=== PATIENT | male | born 1970 | race Caucasian/White ===

== ENCOUNTER 2017-10-03 18:52 | Emergency (ER) | payer BC ==
[2017-10-03] MEDS ORDERED: Adacel (T-DAP) 0.5 ML VIAL ONE (20:00)
[2017-10-03] MEDS ORDERED: Lidocaine 1% (PF) 30 ML VIAL ONE (20:21)
[2017-10-03] MEDS ORDERED: HYDROcodone/Acetaminophen 10/325 mg Tablet ONE (20:49)
--- NOTE | 2017-10-03 21:33 | RAD ---
THREE VIEWS OF THE RIGHT HAND: INDICATIONS: Right hand injury. FINDINGS: There is a comminuted, obliquely oriented fracture involving the distal tuft of the right long finger . No definite additional acute osseous abnormality is evident. Sesamoids are seen adjacent to the M CP of the index and long fingers. IMPRESSION: Distal tuft fracture of the right long finger. POS: [facility]
== END 2017-10-03 22:32 | disposition home or self-care (01) ==
LOC: ERS 18:52
DX: S62.632B Displaced fracture of distal phalanx of right middle finger, initial encounter for open fracture (principal); S61.214A Laceration without foreign body of right ring finger without damage to nail, initial encounter; Z23 Encounter for immunization; W31.2XXA Contact with powered woodworking and forming machines, initial encounter
CPT/HCPCS: 90471; 90715; J2001

== ENCOUNTER 2017-10-05 09:18 | Observation (INO) | payer BC, SELFPAY ==
[2017-10-05 12:22] LABS: #Basophils 0.1 thou/uL (0.0-0.2); #Eosinphils 0.1 thou/uL (0.0-0.7); #Lymphocytes 1.3 thou/uL (1.20-3.40); #Monocytes 0.6 thou/uL (0.11-0.59); %Basophils 0.8 % (0.0-1.0); %Lymphocytes 12.5 % (21.0-51.0); %Monocytes 6.1 % (0.0-10.0); %Neutrophils 79.6 % (42.0-75.0); Hemoglobin 14.5 g/dL (14.0-18.0); Mean Corpuscular HGB CONC 33.5 g/dL (32.0-36.0); Mean Corpuscular Hemoglobin 28.7 pg (27.0-31.0); Mean Corpuscular Volume 85.8 fl (80.0-94.0); Platelet Count 238 thou/uL (130-400); RBC Distribution Width 14.7 % (11.5-14.5); Red Blood Cell (RBC) Count 5.06 mill/uL (4.70-6.10)
[2017-10-05] MEDS ORDERED: Morphine 4 MG/ML VIAL SLOW IVP PRN (12:43)
[2017-10-05] MEDS ORDERED: Ondansetron HCl/PF 4 MG/2 ML Vial IVP PRN ×2 (12:43→22:59)
[2017-10-05] MEDS ORDERED: Acetaminophen 325 MG TAB PO PRN (12:43)
[2017-10-05] MEDS ORDERED: Ondansetron ODT 4 MG TAB SL PRN (12:43)
[2017-10-05 12:48] LABS: ALT (SGPT) 22 U/L (8-55); AST (SGOT) 14 U/L (5-34); Alkaline Phosphatase 65 U/L (40-150); Anion Gap 11 mmol/L (10-20); BUN (Urea Nitrogen) 13 mg/dL (8.9-20.6); Bilirubin, Total 0.4 mg/dL (0.2-1.2); Calc. Creatinine Clearance 0 mL/min (70-130); Calcium 9.2 mg/dL (7.8-10.44); Carbon Dioxide 25 mmol/L (22-29); Chloride 106 mmol/L (98-107); Estimated GFR-MDRD Greater than 90; Globulin 2.9 g/dL (2.4-3.5); Glucose 102 mg/dL (70-105); Potassium 4.1 mmol/L (3.5-5.1); Protein, Total 6.9 g/dL (6.0-8.3); Sodium 138 mmol/L (136-145)
[2017-10-05 13:22] VITALS: BMI 46.0
--- NOTE | 2017-10-05 14:21 | HP ---
DATE OF ADMISSION: 10/05/2017 REQUESTING PHYSICIAN: Dr. Gacria. ATTENDING PHYSICIAN: Dr. King. CONSULTATION: Hand Surgery, Dr. Bardales. HISTORY OF PRESENT ILLNESS: The patient is a 46-year-old man who on Wednesday was working with a table saw when he brushed the dorsum of his right middle finger, ring finger and small finger against the b lade avulsing the nails off of his ring finger and middle finger and the soft tissue of the tip of hi s small finger. The patient was brought to the emergency room and was evaluated after orthopedic con sultation has recommended that he follow up with Dr. Bardales. The patient had an appointment schedu led for tomorrow, but felt that his hand needs to be seen sooner, so he returned to the Emergency Dep artment where after discussion with Dr. Bardales it is felt that the patient should be admitted for p ossible skin grafting of his nailbeds, at which time we asked to admit the patient. ALLERGIES: SULFA meds. CURRENT MEDICATIONS: None. PAST MEDICAL HISTORY: None. PAST SURGICAL HISTORY: Oral sinus surgery for sleep apnea. SOCIAL HISTORY: Patient is and lives at home with his . Denies drug, alcohol, or tobacc o use. REVIEW OF SYSTEMS: Ten-point review of systems was negative, unless otherwise stated. PHYSICAL EXAMINATION: VITAL SIGNS: Blood pressure 134/88, respirations 18, heart rate 86, temperature is 98.5, oxygen satu ration 94% on room air. GENERAL: The patient is resting comfortably, sitting in the emergency room bed. He is alert and ethan ented x3. Tim coma scale is 15. HEENT: Unremarkable. NECK: Trachea is midline. No JVD. CHEST: Clear to auscultation bilaterally. HEART: Regular rate and rhythm. ABDOMEN: Soft, flat, nontender. EXTREMITIES: Unremarkable with exception of his right upper extremity which shows avulsions to the d orsal tips of his middle finger, ring finger and small finger on his right dominant hand. BACK: Atraumatic and nontender. IMAGING: Radiographs from Wednesday show a small tuft fracture of the middle finger. LABORATORY FINDINGS: White blood cell count 10.0, hemoglobin 14.5, hematocrit 43.4, platelets 238. Sodium 138, potassium 4.1, chloride 106, CO2 25, BUN 13, creatinine 0.76, glucose 102. LFTs are unre markable. ASSESSMENT AND PLAN: 1. Status post avulsion injuries to right middle finger, ring finger and small finger. 2. Pain secondary to acute trauma. 3. Plan will be to admit the patient to the surgical floor and await evaluation by the hand surgeon, which per discussion with emergency room physician, plan will be to take the patient to the operatin g room for a possible skin graft this evening. The patient will remain n.p.o. Medications via IV an d then we will await postop decisions by Dr. Bardales. The evaluation, examination, laboratory and r adiographic findings were discussed with Dr. King was in agreement with this plan. We will see the patient on the floor.
[2017-10-05] MEDS ORDERED: Acetaminophen 1,000 MG in Premix Bag 1 BAG IVPB PRN (16:26)
[2017-10-05] MEDS ORDERED: Ketorolac Tromethamine 30 MG/ML VIAL IVP PRN (16:26)
[2017-10-05] MEDS ORDERED: Ondansetron HCl/PF 4 MG/2 ML Vial ONE (17:15)
[2017-10-05] MEDS ORDERED: Lidocaine 1% PF 5 ML VIAL ONE (17:15)
[2017-10-05] MEDS ORDERED: PHENYLEPHRINE-NS 100 MCG/ML 10 ML SYRINGE ONE (17:15)
[2017-10-05] MEDS ORDERED: PROPOFOL 200 MG/20 ML VIAL ONE (17:15)
[2017-10-05] MEDS ORDERED: Fentanyl 100 MCG/2 ML VIAL ONE (20:57)
[2017-10-05] MEDS ORDERED: Midazolam HCl 2 mg/2 ml Vial ONE (20:57)
[2017-10-05] MEDS ORDERED: Bacitracin Zinc Ointment 30 gm TUBE ONE (21:07)
[2017-10-05] MEDS ORDERED: Thrombin 5000 UNITS/5 ML VIAL ONE (21:07)
[2017-10-05] MEDS ORDERED: Sodium Chloride 0.9% 50 ML ONE (21:07)
[2017-10-05] MEDS ORDERED: Bupivacaine PF 0.5% 30 ML VIAL ONE (21:10)
[2017-10-05] MEDS ORDERED: Promethazine HCl 25 MG/ML VIAL IM PRN (22:59)
[2017-10-05] MEDS ORDERED: Promethazine HCl 25 MG/ML VIAL SLOW IVP PRN (22:59)
[2017-10-05] MEDS ORDERED: Ketorolac Tromethamine 30 MG/ML VIAL ONE (23:09)
--- NOTE | 2017-10-05 23:27 | PRG ---
DATE OF SERVICE: 10/05/2017 SUBJECTIVE: Dov Hong is a 46-year-old male who was admitted earlier today status post hand tr auma. Patient has been seen and evaluated by Dr. Bardales. The patient indicates that Dr. Bardales stated he would be going to the OR later this evening. He has no further complaints at this time. OBJECTIVE: Vital signs reviewed and stable. The patient is afebrile, resting in bed, in no acute distress. Nor mal work of breathing. ASSESSMENT: As documented by day shift team. Patient to OR with Dr. Bardales later this evening wit h possible discharge postoperatively.
[2017-10-06 02:03] VITALS: BP 143/86; TEMP 98.2
--- NOTE | 2017-10-06 08:02 | OP ---
DATE OF SURGERY: 10/05/2017 PREOPERATIVE DIAGNOSIS: Saw to right long finger, ring finger, small fingertips with substantial ful l-thickness skin loss. POSTOPERATIVE DIAGNOSIS: Saw to right long finger, ring finger, small fingertips with substantial fu ll-thickness skin loss. FINDINGS: No other significant abnormality found. PROCEDURES PERFORMED: 1. Right long finger, ring finger, small finger debridement down to but not including bone with no e xposed bone, only some fascia and muscle. 2. Closure of 2 cm wounds on the right long finger. SURGEON: Dr. Bardales. ANESTHESIA: Local block augmented and general endotracheal anesthesia. ESTIMATED BLOOD LOSS: 5 mL. SPECIMEN REMOVED: None. DESCRIPTION OF PROCEDURE: After successful general endotracheal anesthesia, limb was prepped and keerthi ped. This included all 3 digits simultaneously done on the same hand, same field. Limb was exsangui nated, tourniquet inflated to 250 mmHg pressure. We immediately inspected the deepest resess of thes e wounds and found that the nails were involved in the injury and protected the digit, so a nail bed ablation was ordered. This was accomplished without complication. We then unroofed, removed all the nail, so the nail removal was part of this procedure. From here, w e could see that the distal one-third of all the nails had loss the partial thickness nail bed and na il bed was then placed and so we irrigated this and would later close it. We found, however, the ips ilateral ring finger had a slightly wider gap in its full thickness loss and when we got to the debri chase and irrigation, was able to close it primarily. Once this was done, and maintained hemostasis, we placed a new dressing and the patient was prepared for discharge.
--- NOTE | 2017-10-08 00:51 | DIS ---
DATE OF ADMISSION: 10/05/2017 DATE OF DISCHARGE: 10/06/2017 ADMISSION DIAGNOSES: 1. Acute traumatic pain. 2. Avulsion injury to right hand. DISCHARGE DIAGNOSES: 1. Acute traumatic pain. 2. Avulsion injury to right hand. MAINTENANCE TEAM LEADER: Dr. Bardales, Hand Surgery. PROCEDURES: Debridement and closure of right hand injury operatively with Dr. Bardales on 10/05/2017 . HOSPITAL COURSE: This is a 46-year-old male who presented to [place] [facility] status post a table saw i njury to his right hand. The patient was seen and evaluated in the emergency room and Dr. Bardales w as notified of his injury. Trauma Service was asked to admit and patient underwent operative debride ment and closure of his wound with Dr. Bardales. Postoperatively, the patient did well. Pain was co ntrolled and diet as tolerated. He was discharged shortly after this procedure by Orthopedic Surgery . DISCHARGE INSTRUCTIONS: Provided to the patient. All questions were answered prior to discharge. DISCHARGE MEDICATIONS: Included clindamycin, Toradol, and hydrocodone as documented in his discharge packet. FOLLOWUP APPOINTMENTS: The patient is to follow up with Dr. Bardales in approximately 3 days. He do es not need to follow up with Trauma Services and may call our office with any questions. This is me rely a summary of the patient's hospitalization. For more in depth information, please see his medic al record in its entirety.
[2017-10-09 17:09] LABS: Fungus Stain Final report (.)
[2017-11-05 16:15] LABS: Fungus Culture Final report (.)
== END 2017-10-06 02:10 | disposition home or self-care (01) ==
LOC: ERS 09:18 → SURG A 11:21
PROVIDERS: ADMIT Surgery; ATTEND Surgery
PROC: 0KBC0ZZ Excision of Right Hand Muscle, Open Approach (ICD-10-PCS; principal; 2017-10-05)
PROC: 0HQFXZZ Repair Right Hand Skin, External Approach (ICD-10-PCS; 2017-10-05)
DX: S61.302A Unspecified open wound of right middle finger with damage to nail, initial encounter (principal); S61.304A Unspecified open wound of right ring finger with damage to nail, initial encounter; S61.306A Unspecified open wound of right little finger with damage to nail, initial encounter; W31.2XXA Contact with powered woodworking and forming machines, initial encounter; G89.11 Acute pain due to trauma; Z88.5 Allergy status to narcotic agent; Z88.0 Allergy status to penicillin; Z91.030 Bee allergy status; Z98.890 Other specified postprocedural states; Z87.891 Personal history of nicotine dependence
CPT/HCPCS: 80053; 85025; 87070; 87102; 87205; 87206; 96365; 96375; A4216; G0378; J0131; J1885; J2001; J2250; J2270; J2405; J2704; J3010; J3370; J3490; S0020

== ENCOUNTER 2022-04-07 17:00 | Emergency (ER) | payer BC ==
[2022-04-07 20:51] LABS: #Basophils 0.1 thou/uL (0.0-0.2); #Eosinphils 0.3 thou/uL (0.0-0.7); #Lymphocytes 3.7 thou/uL (1.20-3.40); #Monocytes 0.9 thou/uL (0.11-0.59); #Neutrophils 6.7 thou/uL (1.40-6.50); %Basophils 0.5 % (0.0-1.0); %Eosinophils 2.2 % (0.0-10.0); %Lymphocytes 32.2 % (21.0-51.0); %Monocytes 7.5 % (0.0-10.0); %Neutrophils 57.6 % (42.0-75.0); Hemoglobin 14.8 g/dL (14.0-18.0); Mean Corpuscular HGB CONC 33.3 g/dL (32.0-36.0); Mean Corpuscular Hemoglobin 29.1 pg (27.0-31.0); Mean Corpuscular Volume 87.4 fL (78.0-98.0); Mean Platelet Volume 8.6 fL (7.4-10.4); Platelet Count 245 thou/uL (130-400); RBC Distribution Width 14.4 % (11.5-14.5); Red Blood Cell (RBC) Count 5.07 mill/uL (4.70-6.10); White Blood Cell (WBC) Count 11.5 thou/uL (4.8-10.8)
[2022-04-07 21:03] LABS: ALT (SGPT) 24 U/L (8-55); AST (SGOT) 18 U/L (5-34); Albumin 4.1 g/dL (3.5-5.0); Alkaline Phosphatase 75 U/L (40-110); Anion Gap 14 mmol/L (10-20); BUN (Urea Nitrogen) 9 mg/dL (8.4-25.7); Bilirubin, Total 0.4 mg/dL (0.2-1.2); Calc. Creatinine Clearance 0 mL/min (70-130); Calcium 8.7 mg/dL (7.8-10.44); Carbon Dioxide 24 mmol/L (22-29); Chloride 105 mmol/L (98-107); Estimated GFR 110; Globulin 2.6 g/dL (2.4-3.5); Glucose 94 mg/dL (70-105); Potassium 3.9 mmol/L (3.5-5.1); Protein, Total 6.7 g/dL (6.0-8.3); Sodium 139 mmol/L (136-145)
[2022-04-07] MEDS ORDERED: Amlodipine 5 MG TAB ONE (21:50)
[2022-04-07] MEDS ORDERED: Lisinopril 10 MG TAB ONE (21:50)
[2022-04-07] MEDS ORDERED: Ketorolac Tromethamine 30 MG/ML VIAL ONE (22:27)
== END 2022-04-07 22:57 | disposition home or self-care (01) ==
LOC: ERS 17:00
DX: M54.2 Cervicalgia (principal); I10 Essential (primary) hypertension
CPT/HCPCS: 36415; 71045; 72125; 80053; 84484; 85025; 93005; 96372; J1885

== ENCOUNTER 2022-08-10 05:59 | Day surgery (SDC) | payer BC ==
[2022-08-06 14:02] VITALS: BMI 47.5
[2022-08-10] MEDS ORDERED: PROPOFOL 200 MG/20 ML VIAL ONE (08:23)
== END 2022-08-10 09:52 | disposition home or self-care (01) ==
LOC: SDC 05:59
PROVIDERS: ATTEND Internal Medicine Gastroenterology
PROC: 0DBN8ZX Excision of Sigmoid Colon, Via Natural or Artificial Opening Endoscopic, Diagnostic (ICD-10-PCS; principal; 2022-08-10)
PROC: 0DBM8ZX Excision of Descending Colon, Via Natural or Artificial Opening Endoscopic, Diagnostic (ICD-10-PCS; principal; 2022-08-10)
PROC: 0DBL8ZX Excision of Transverse Colon, Via Natural or Artificial Opening Endoscopic, Diagnostic (ICD-10-PCS; principal; 2022-08-10)
PROC: 0DBP8ZX Excision of Rectum, Via Natural or Artificial Opening Endoscopic, Diagnostic (ICD-10-PCS; principal; 2022-08-10)
DX: Z12.11 Encounter for screening for malignant neoplasm of colon (principal); D12.3 Benign neoplasm of transverse colon; D12.4 Benign neoplasm of descending colon; D12.5 Benign neoplasm of sigmoid colon; K62.1 Rectal polyp; K64.8 Other hemorrhoids; I10 Essential (primary) hypertension; Z79.899 Other long term (current) drug therapy; Z88.0 Allergy status to penicillin; Z88.2 Allergy status to sulfonamides; Z91.030 Bee allergy status
CPT/HCPCS: 88305; J2704

== ENCOUNTER 2024-07-11 16:02 | Outpatient (CLI) | payer BC | END 2024-07-11 16:03 | disposition home or self-care (01) | LOC: BICRAD 16:02 | PROVIDERS: ATTEND Nurse Practitioner Family | DX: J40 Bronchitis, not specified as acute or chronic (principal); R05.3 Chronic cough | CPT/HCPCS: 71046 ==

== ENCOUNTER 2024-08-09 19:27 | Emergency (ER) | payer BC ==
[2024-08-09 20:22] LABS: #Basophils 0.09 10x3/uL (0.0-0.2); %Basophils 0.8 % (0.0-1.0); %Eosinophils 1.6 % (0.0-10.0); %Lymphocytes 26.6 % (21.0-51.0); %Monocytes 6.3 % (0.0-10.0); Hematocrit 43.1 % (42.0-52.0); Hemoglobin 14.3 g/dL (14.0-18.0); Mean Corpuscular HGB CONC 33.2 g/dL (32.0-36.0); Mean Corpuscular Hemoglobin 28.4 pg (27.0-31.0); Mean Corpuscular Volume 85.5 fL (78.0-98.0); Mean Platelet Volume 11.1 fL (7.4-10.4); Platelet Count 250 10x3/uL (130-400); RBC Distribution Width 15.5 % (11.5-14.5); Red Blood Cell (RBC) Count 5.04 mill/uL (4.70-6.10)
[2024-08-09 20:30] LABS: Bacteria/HPF None Seen HPF (None Seen); Bilirubin Negative (Negative); Blood, Urine 3+ (Negative); CAUTI Indications for Culture Pelvic or flank pain; Clarity Extra Turbid (Clear); Glucose, Urine (Dipstick) Normal (Negative); Ketone, Urine Trace mg/dL (Negative); Leukocyte Negative Leu/uL (Negative); Nitrite Negative (Negative); Protein, Urine (Dipstick) 70 mg/dL (Neg-Trace); RBC/HPF Greater than 50 HPF (0-3); Specific Gravity, Urine 1.023 (1.002-1.036); Squamous Epithelial 0-3 HPF (0-3); Urobilinogen Normal mg/dL (Less than 2); WBC/HPF 0-3 HPF (0-3); pH, Urine 5.5 (5.0-9.0)
[2024-08-09 20:31] LABS: Urine Culture Reflex No No
[2024-08-09 20:45] LABS: ALT (SGPT) 49 U/L (8-55); AST (SGOT) 34 U/L (5-34); Albumin 4.3 g/dL (3.5-5.0); Alkaline Phosphatase 63 U/L (40-110); Anion Gap 17 mmol/L (10-20); BUN (Urea Nitrogen) 17 mg/dL (8.4-25.7); Bilirubin, Total 0.5 mg/dL (0.2-1.2); Calc. Creatinine Clearance 0 mL/min (70-130); Calcium 9.3 mg/dL (7.8-10.44); Carbon Dioxide 22 mmol/L (22-29); Chloride 99 mmol/L (98-107); Estimated GFR 104; Globulin 3.3 g/dL (2.4-3.5); Glucose 113 mg/dL (70-105); Lipase 31 U/L (8-78); Potassium 3.5 mmol/L (3.5-5.1); Protein, Total 7.6 g/dL (6.0-8.3); Sodium 134 mmol/L (136-145)
== END 2024-08-09 22:15 | disposition home or self-care (01) ==
LOC: ERS 19:27
DX: N20.1 Calculus of ureter (principal)
CPT/HCPCS: 36415; 74176; 80053; 81001; 83690; 85025

== ENCOUNTER 2025-06-26 14:51 | Outpatient (CLI) | payer BC | END 2025-06-26 14:52 | disposition home or self-care (01) | LOC: ULT 14:51 | PROVIDERS: ATTEND Urology | DX: N20.0 Calculus of kidney (principal); R93.421 Abnormal radiologic findings on diagnostic imaging of right kidney; K76.0 Fatty (change of) liver, not elsewhere classified | CPT/HCPCS: 76770 ==